=== PATIENT | male | born 1975 | race Caucasian/White ===

== ENCOUNTER 2017-02-25 03:29 | Emergency (ER) | payer MEDICAID ==
[2017-02-25 06:04] VITALS: BP 138/91
== END 2017-02-25 06:04 | disposition home or self-care (01) ==
LOC: ED 03:29
DX: S43.005A Unspecified dislocation of left shoulder joint, initial encounter (principal); W06.XXXA Fall from bed, initial encounter; Y93.89 Activity, other specified; Y92.89 Other specified places as the place of occurrence of the external cause; Y99.8 Other external cause status
CPT/HCPCS: J1885; J2270; Q0092; Q0162